=== PATIENT | male | born 1970 | race Native Hawaiian/Other Pacific Islander ===

== ENCOUNTER 2017-11-03 13:46 | Outpatient (CLI) | payer BC | END 2017-11-03 20:42 | disposition home or self-care (01) | LOC: LABW 13:46 | DX: M10.072 Idiopathic gout, left ankle and foot (principal) | CPT/HCPCS: 36415; 84550; 85651 ==

== ENCOUNTER 2020-07-08 09:07 | Emergency (ER) | payer BC ==
[~2020-07-08] VITALS: Ht 177.8 cm; Wt 65.8 kg
[2020-07-08 09:30] VITALS: TEMP 98.7
[2020-07-08 09:58] LABS: PLATELET COUNT 224 K/uL (142-355)
[2020-07-08 10:09] LABS: POTASSIUM 3.6 mmol/L (3.6-5.2)
[2020-07-08 11:20] VITALS: BP 136/73
== END 2020-07-08 11:20 | disposition home or self-care (01) ==
LOC: ED 09:07
PROVIDERS: Hospitalist
DX: R10.84 Generalized abdominal pain (principal); R11.2 Nausea with vomiting, unspecified; R94.5 Abnormal results of liver function studies
CPT/HCPCS: 36415; 80053; 80320; 81000; 82150; 83690; 85027; 96360; 96375; 99284; J1885; J2405

== ENCOUNTER 2020-08-03 08:19 | Outpatient (CLI) | payer BC | END 2020-08-03 19:26 | disposition home or self-care (01) | LOC: US 08:19 | DX: R10.11 Right upper quadrant pain (principal); R79.89 Other specified abnormal findings of blood chemistry ==

== ENCOUNTER 2023-05-27 18:59 | Outpatient (CLI) | payer BC | END 2023-05-27 20:37 | disposition home or self-care (01) | LOC: RAD 18:59 | PROVIDERS: ATTEND Internal Medicine | DX: M54.59 Other low back pain (principal) ==